=== PATIENT | male | born 1960 | race Caucasian/White ===

== ENCOUNTER 2020-10-13 06:38 | Inpatient (IN) ==
--- NOTE | 2020-10-02 10:48 | PAT Medication Instructions ---
Medication Instructions Date of Service October 02, 2020 Home Medications losartan-hydrochlorothiazide 1 tab PO QPM Take evening before surgery losartan-hydrochlorothiazide 1 tab PO QPM NOTHING TO EAT OR DRINK AFTER MIDNIGHT. Other Notes If you have any questions please call us at [phone] or [phone] or [phone] or [phone]
--- NOTE | 2020-10-02 11:43 | Anesthesiology Consultation ---
Date of Service October 02, 2020 Assessment & Plan (1) Encounter for pre-operative examination: COVID Status: As of 10/02 assessment, patient denies travel to endemic area, known exposure/sick contacts, or symptoms of COVID19. Patient instructed that they and their household members must follow strict social distancing guidelines, wear a mask in public and avoid travel/events/gatherings for 14 days prior to surgery. Preoperative COVID19 testing to be completed prior to surgery per surgeon's arrangements (10/06). Patient made aware to self-isolate as much as possible between COVID testing and surgery. Chart Review Chart Review: Acceptable Risk for Surgery (pending pcp clearance 10/10) and Patient seen in Pre Admission Testing Teaching & Discussion Instructed NPO after midnight before surgery, except medications with 15 cc of water. Medication instructions provided according to the PAT guidelines. History Surgery Operation Date: 10/13/20 08:05 Proposed Procedures p Right Total Hip Arthroplasty Uncemented - Reece Padgett, Height/Weight Height: 5 ft 10 in Weight: 87.5 kg Allergies Allergy/AdvReac Type Severity Reaction Status Date / Time No Known Allergies Allergy Verified 09/29/20 11:46 Medications Home Medications Medication Instructions Recorded Confirmed Last Taken losartan-hydrochlorothiazide 1 tab PO QPM 09/29/20 09/29/20 Unknown Past Medical History Medical History Hypertension Osteoarthritis Exercise / Class Metabolic Activity II 4-5 Yardwork/Stairs/Walk up hill Past Family History Family History Other No family history of adverse response to anesthesia Past Surgical History Surgical History History of colonoscopy History of meniscectomy of left knee Past Anesthesia History No Hx of Anesthesia Complications and No Family Hx of Anesthesia Complications History of PONV No Hx of PONV and No Hx of Motion Sickness Social History Smoking Status: Never smoker Do You Dip or Chew Tobacco: No Hx Alcohol Use: Yes alcohol intake frequency: holidays/special occasions only Hx Substance Use: No substance use type: does not use Review of Systems Pt denies any recent chest pain, shortness of breath, palpitations, cough, fever, URI, or uncontrolled acid reflux. Physical Exam Vital Signs BP: 157/90 (rpt 148/91 five mins later. Pt reports taking BP at home, results usually 120s/80s. Will see PCP prior to surgery.) P: 68bpm SPO2: 96% RA T: 98.2 F R: 16 ENMT Mouth: + dental restorations (few crowns on molars); no chipped teeth and no loose teeth Thyromental Distance: > or= 3.5 Finger Breadths Mallampati Class: I Neck normal visual inspection; neck extension not limited Respiratory normal respiratory effort, lungs clear to auscultation Cardiovascular RRR, no murmur, no edema Vessels: no carotid bruit Testing Laboratory Results 10/02/20 11:45 10/02/20 11:55 PT 10.2 Seconds (9.0-12.0) 10/02/20 11:45 INR 1.0 (0.9-1.1) 10/02/20 11:45 APTT 25.5 Seconds (21.0-31.0) 10/02/20 11:45 Hemoglobin A1c 4.9 % (4.5-5.6) 10/02/20 11:45 Urine Color Yellow 10/02/20 11:45 Urine Appearance Clear (Clear) 10/02/20 11:45 Urine pH 6.0 (4.5-7.5) 10/02/20 11:45 Ur Specific [place] 1.012 (1.000-1.030) 10/02/20 11:45 Urine Protein Negative (Negative) 10/02/20 11:45 Urine Glucose (UA) Negative (Negative) 10/02/20 11:45 Urine Ketones Negative (Negative) 10/02/20 11:45 Urine Nitrite Negative (Negative) 10/02/20 11:45 Ur Leukocyte Esterase 1+ (Negative) H 10/02/20 11:45 Urine WBC (Auto) 1-5 /hpf (0-5) 10/02/20 11:45 Urine RBC (Auto) 0-4 /hpf (0-4) 10/02/20 11:45 U Hyaline Cast (Auto) 0 /lpf (0-5) 10/02/20 11:45 U Epithel Cells (Auto) 0-5 /lpf (0-5) 10/02/20 11:45 Urine Bacteria (Auto) Negative (Negative) 03/08/21 11:45 Blood Type O Positive 10/02/20 11:45 Antibody Screen NEGATIVE 10/02/20 11:45 *Mildly increased Cr. Unknown if this is baseline. Will send labs to PCP for their reference at clearance appointment. Electrocardiogram Date: 10/02/20 Findings: + NSR @ (63bpm) Chest X-Ray Date: 10/02/20 Findings: + NAD
[2020-10-02 12:22] LABS: Basophils # (auto) 0.01 K/uL (0-0.2); Basophils % (auto) 0.2 %; Eosinophils # (auto) 0.03 K/uL (0-0.5); Eosinophils % (auto) 0.6 %; Hemoglobin 15.6 g/dL (14.0-18.0); Immature Granulocytes # (auto) 0.01 K/uL (0.00-0.02); Immature Granulocytes % (auto) 0.2 %; Lymphocytes # (auto) 1.25 K/uL (1.2-3.4); Lymphocytes % (auto) 23.5 %; Mean Corpuscular Hemoglobin 32.8 pg (25-34); Mean Corpuscular Hgb Conc 35.5 g/dL (32-36); Mean Corpuscular Volume 92.4 fL (80-100); Mean Platelet Volume 10.2 fL (7.4-10.4); Monocytes # (auto) 0.44 K/uL (0.11-0.59); Monocytes % (auto) 8.3 %; Neutrophils # (auto) 3.59 K/uL (1.4-6.5); Neutrophils % (auto) 67.2 %; Platelet Count 219 K/uL (130-400); RDW Coefficient of Variation 12.4 % (11.5-14.5); RDW Standard Deviation 42.3 fL (36.4-46.3); Red Blood Count 4.76 M/uL (4.7-6.1); White Blood Count 5.33 K/uL (4.8-10.8)
--- NOTE | 2020-10-02 12:23 | XRay Report ---
XR chest Pre-admission PA/Lat HISTORY: Preop. COMPARISON: None. FINDINGS: The lungs are clear. Cardiac silhouette is normal in size. No pleural effusions. No pneumot horax. IMPRESSION: No acute process. ACT 112: Negative or not required by law. Electronically signed by: Jorge L Shook M.D. 10/02/2020 12:21 PM
[2020-10-02 12:27] LABS: Appearance Urine Clear (Clear); Bacteria Urine Automated Negative (Negative); Bilirubin Urine Negative (Negative); Blood Urine Negative (Negative); Cast Urine Automated 0 /lpf (0-5); Color Urine Yellow; Epithelial Cell Urine Auto 0-5 /lpf (0-5); Glucose Urine UA Negative (Negative); Ketones Urine Negative (Negative); Leukocyte Esterase Urine 1+ (Negative); Nitrite Urine Negative (Negative); Protein Urine Negative (Negative); RBC Urine Automated 0-4 /hpf (0-4); Specific Gravity Urine 1.012 (1.000-1.030); Urobilinogen Urine Negative (Negative)
[2020-10-02 12:34] LABS: Partial Thromboplastin Time 25.5 Seconds (21.0-31.0); Prothrombin Time 10.2 Seconds (9.0-12.0)
[2020-10-02 12:36] LABS: Estimated Average Glucose 94 mg/dl; Hemoglobin A1C 4.9 % (4.5-5.6)
--- NOTE | 2020-10-02 13:24 | Electrocardiogram Report ---
Test Reason : Blood Pressure : / mmHG Vent. Rate : 063 BPM Atrial Rate : 063 BPM P-R Int : 156 ms QRS Dur : 086 ms QT Int : 402 ms P-R-T Axes : 046 067 025 degrees QTc Int : 411 ms Normal sinus rhythm Normal ECG No previous ECGs available Confirmed by Edward Charles ([id number]) on 10/02/2020 1:24:06 PM Referred By: Reece Padgett Confirmed By:Edward Charles
[2020-10-02 15:40] LABS: Calcium 9.4 mg/dl (8.5-10.1); Est GFR (African American) 56.4; Est GFR (Non-African American) 48.7; Potassium 4.2 mmol/L (3.5-5.1)
--- NOTE | 2020-10-12 16:51 | History & Physical Report ---
Date of Service October 12, 2020 Assessment & Plan (1) Degenerative joint disease of right hip: Schedule a Right Total Hip Arthroplasty for 10.13.20. All potential risks, benefits, complications, alternatives, and rehab have been discussed with the patient and he wishes to proceed. ASA 81 mg BID x 4 wks post op for DVT prophylaxis. History of Present Illness Chief Complaint: right hip pain Primary Care Provider: NO PCP This is a patient with chronic right hip and groin pain that has been treated conservatively for hip DJD. He has failed all conservative management. He is now being set up for surgical management. Allergies Allergy/AdvReac Type Severity Reaction Status Date / Time No Known Allergies Allergy Verified 09/29/20 11:46 Home Medications Medication Instructions Recorded Confirmed Type losartan-hydrochlorothiazide 1 tab PO QPM 09/29/20 09/29/20 History Past Med/Surg History Medical History Hypertension Osteoarthritis Surgical History History of colonoscopy History of meniscectomy of left knee Family History Other No family history of adverse response to anesthesia Social History Smoking Status: Never smoker Second Hand Exposure: No; Do You Dip or Chew Tobacco: No; Tobacco Cessation Education Requested by Patient: No Hx Alcohol Use: Yes Hx Substance Use: No Preferred Language: [place] Island[place] Communication Ability: Effective Jar Filler Required: No Beliefs That Will Affect Care: None Current Living Situation: Spouse Other Information That Helps Us Care for You: No Feels Safe at Home: Yes Safety Concerns: Feels Safe At This Time Assistive Devices: None Physical Exam Constitutional: well developed and well nourished; no acute distress ENMT: external ear and nose normal, oropharynx normal Neck: trachea midline, no thyromegaly Respiratory: normal respiratory effort, lungs clear to auscultation Cardiovascular: Rate/Rhythm: regular rate and regular rhythm Gastrointestinal (Abdomen): normal bowel sounds, soft, nontender, no hepatosplenomegaly Musculoskeletal: Hip: + limited ROM of hip (right internal/external rotation), + joint line tenderness (right groin), + SYDNEE test positive (right) and + FADIR test positive (right); hip normal to inspection, no skin erythema and no ecchymosis Skin: no rashes, warm and dry Neurologic: normal touch/pain/proprioception Psychiatric: A+Ox3, euthymic affect Speech: normal rate/rhythm/volume of speech Lymphatic: no cervical or axillary lymphadenopathy
[~2020-10-13 06:38] MED LIST: ACETAMINOPHEN 500 MG TAB PO SCH; CeleBREX 200 MG CAP PO SCH; FAMOTIDINE 20 MG TAB PO SCH; GABAPENTIN 600 MG DOSE PO SCH; LR 500ML BOLUS, THEN 15ML/HR IV SCH; METOCLOPRAMIDE HCL 10 MG TABLET PO SCH; ROPIVACAINE 0.5% HCL/PF 150 MG, BUPIVACAINE 0.75% MPF 20 ML, EPINEPHrine 30MG/30ML (OR ... INSTIL SCH; Scopolamine 1 MG TDSY TD SCH; ceFAZolin 2000MG 2,000 MG/15 ML SYR IV SCH; dexAMETHasone 4 MG TAB PO SCH
[2020-10-13] MEDS ORDERED: BUPIVACAINE 0.5 % 5 MG/1 ML PF 10ML VIAL ONE (07:26)
--- NOTE | 2020-10-13 07:58 | History & Physical Bridge Note ---
Date of Service October 13, 2020 History & Physical Bridge Note I have examined the patient, reviewed the History & Physical and in the interval since the performance of the History & Physical I have noted the following changes of clinical significance: no changes noted
[2020-10-13] MEDS ORDERED: TRANEXAMIC ACID 1,000 MG **IV Pre-op IV SCH (08:00)
[2020-10-13] MEDS ORDERED: MIDAZOLAM HCL 1 MG/ML 2ML VIAL ONE (08:50)
[2020-10-13] MEDS ORDERED: fentaNYL citrate 100 MCG/2 ML VIAL ONE ×2 (08:50→12:02)
[2020-10-13] MEDS ORDERED: ePHEDrine sulfate 50 MG/ML AMP IV PRN (09:10)
[2020-10-13] MEDS ORDERED: ATROPINE SULFATE 0.1 MG/ML 10ML SYR IV PRN (09:10)
[2020-10-13] MEDS ORDERED: fentaNYL citrate 100 MCG/2 ML VIAL IV PRN (09:10)
[2020-10-13] MEDS ORDERED: HYDROmorphone INJ 2 MG/ML SYR/VIAL IV PRN (09:10)
[2020-10-13] MEDS ORDERED: ONDANSETRON INJ 2 MG/ML 2 ML VIAL IV PRN ×2 (09:10→15:34)
[2020-10-13] MEDS ORDERED: BACITRACIN INJ 50,000 UNIT VIAL ONE (09:47)
[2020-10-13] MEDS ORDERED: ORTHO JOINT ANESTHETIC ONE (09:47)
[2020-10-13] MEDS ORDERED: PROPOFOL IV EMULSION 10 MG/ML 20 ML VIAL IV ONE ×2 (10:16→12:25)
[2020-10-13] MEDS ORDERED: LIDOCAINE HCL 2% 2 ML VIAL/AMP(20MG/ML) INFIL ONE (10:16)
[2020-10-13] MEDS ORDERED: ONDANSETRON INJ 2 MG/ML 2 ML VIAL ONE (10:16)
--- NOTE | 2020-10-13 13:11 | Post Operative Brief Note ---
Immediate Post Op Note v1 Date of Surgery October 13, 2020 Pre & Post Diagnosis Operation Date: 10/13/20 08:25 Pre-Op Diagnosis: Osteoarthritis Right Hip, degenerative arthritis, right hip pain Post-Op Diagnosis: Osteoarthritis Right Hip, degenerative arthritis, right hip pain I identified the patient and participated in the time-out.: Yes Procedure Operation Date: 10/13/20 08:25 Actual Procedures p Right Total Hip Arthroplasty with press-fit Victoriano Accolade 2 size #4 femoral component, Biolox delta ceramic 36 mm x +2.5 mm femoral head, Trident X3 10 degree polyethylene, Trident 2 Tritanium cluster acetabular shell 54 mm and two 6.5 mm hex screws.- Reece Padgett DO Surgeon Reece Padgett DO [employer] Nino Dee PA-C Estimated Blood Loss 100 Findings Consistent with Post-Op Diagnosis Specimens Bone and tissue right hip Drains Hemovac Drain (Hemovac x2) Anesthesia Type Spinal MAC Complications none Disposition Accompanied Patient To Recovery: No Disposition: Recovery Room
--- NOTE | 2020-10-13 13:49 | XRay Report ---
XR hip 1V RT w pelvis CLINICAL HISTORY: Postoperative evaluation. COMPARISON: None FINDINGS: Alignment of the total right hip arthroplasty is anatomic. There is no periprosthetic frac ture or unexpected radiopaque foreign body. Surgical drains are in place. There are 2 acetabular scre ws. Scrotal surgical clips are incidentally noted. IMPRESSION: Expected findings following total right hip arthroplasty. ACT 112: Negative or not required by law. Electronically signed by: Steve Poe M.D. 10/13/2020 1:48 PM
--- NOTE | 2020-10-13 14:32 | Operative Report (OR) ---
DATE OF OPERATION: 10/13/2020 PREOPERATIVE DIAGNOSES: 1. Right hip osteoarthritis. 2. Degenerative joint disease, right hip. 3. Right hip pain. POSTOPERATIVE DIAGNOSES: 1. Right hip osteoarthritis. 2. Degenerative joint disease, right hip. 3. Right hip pain. PROCEDURE: Right total hip arthroplasty using a Victoriano Accolade II Size 4 femur, Biolox delta ceramic femoral head, 36 mm x +2.5 mm neck length, Trident X3 10-degree polyethylene liner, Trident II Tritanium cluster acetabular shell 54 mm, low-profile hex screws 6.5 x2. SURGEON: Reece Padgett DO. FIRE LOOKOUT: Nino Dee PA-C who was present for patient positioning, sterile prep and drape, management of retractors and instruments. He was present through the critical portions of the case including wound closure, application of sterile dressing and transport of the patient to recovery. ANESTHESIA: Spinal regional with local. SPECIMENS: Bone and tissue, right hip. DRAINS: Hemovac x2. COMPLICATIONS: None. BLOOD LOSS: 100 mL. PERTINENT HISTORY: This is a 60-year-old gentleman who has had chronic progressive ongoing and worsening right hip pain for the last 9-12 months. He attempted and failed conservative management including physician directed home exercises, physical therapy, antiinflammatories, intraarticular steroid injections, modification of activities, use of an assistive device and observation. Radiographs demonstrate severe degenerative arthritis with loss of joint space, marginal osteophytes, subchondral sclerosis and subchondral cyst formation of the right hip. The patient was scheduled for surgery as indicated. PROCEDURE: The patient was taken to the Operating Suite and placed supine on the Operating Room table after identification of the consent and identification of the proper operative site the patient was sedated. The patient had previously received a spinal anesthetic. The patient was then placed in the left lateral decubitus position with the affected side up and Stulberg positioning device then used to maintain lateral position of the patient. All bony prominences were properly padded and protected. Axillary roll was placed as standard and the leg lengths were determined to be essentially equal and then the right hip was then sterilely prepped and draped in the usual fashion. 10-blade scalpel incision was made laterally over the greater trochanter. The incision was deepened through the subcutaneous tissue and meticulous hemostasis with electrocautery. Further deepening of the wound through the layer of the fascia was performed with electrocautery and iliotibial band was then incised with electrocautery. Next, Charnley retractor was placed bother anteriorly and posteriorly at the level of the gluteus tendon. Next, electrocautery was used to make an incision in the vastus lateralis and then sweep was made toward the anterior aspect of the patient along the course of the femoral neck and head. Abductor split was then completed. The gluteus minimus and capsule were then incised and then soft tissue was dissected anteriorly. Next as the soft tissue was dissected anteriorly the lesser trochanter was clearly identified and hip was dislocated with relative ease. Hypertrophic osteophytes were noted circumferentially. The hip joint was noted to be noticeably tight. Next the sagittal saw was used to resect the proximal portion of the femoral neck and head approximately one fingerbreadth proximal to the lesser trochanter. Head was then removed and next the labrum was excised from the acetabulum with a 20 blade scalpel and long forceps. Next the wound was irrigated with pulsatile lavage and the pulvinar was then excised from the acetabulum. Appropriate retractors were placed anteriorly superiorly and posteriorly. Next initial acetabular reamer was placed 44 mm medialized to the medial wall and then sequential reaming was performed to size 54 mm. Trial cage was then placed and noted to be stable with excellent fit. Next the incision was irrigated with pulsatile lavage with bacitracin additive and Trident II Tritanium cluster acetabular shell 54 mm was impacted and then low-profile hex screws 6.5 x2 were used to stabilize the acetabular shell. Trident X3 10-degree polyethylene liner 36 mm was impacted into the shell. Lap sponge was placed over to protect it. Next, attention was turned toward the proximal femur. Box osteotome was used to resect proximal portion of bone followed by first pass small reamer. Next, sequential broaching was performed up to size 4 and the 4 trial was placed followed by +2.5 36 mm trial head. Next, it was reduced and had excellent fit and feel with minimal shuck and excellent stability in all planes and range of motion. Leg lengths were restored and next all trial implants were removed. The wound was copiously irrigated with pulsatile lavage and Victoriano Accolade II Size 4 femur x 132 degree final stem was impacted. Next, Biolox delta ceramic femoral head, 36 mm x +2.5 mm neck length. The construct was reduced. Range of motion was performed and noted to be completely stable with excellent range of motion, improved to greater degree than prior to surgery. Two 10 [place] single Hemovac drains were placed exiting anterolaterally. Wound was irrigated with pulsatile lavage. Next a #5 FiberWire suture was used to close the capsule and gluteus minimum via two small bone tunnels made with 2.4 mm drill bit in the greater trochanter. After FiberWire closure was completed and noted to be stable then 10 [place] drains were placed followed by closure of the vastus lateralis and the gluteus medius. This was closed with #1 Vicryl sutures. Next, the iliotibial band was closed using interrupted [id number] #1 Vicryl sutures. Next, final irrigation was performed with pulsatile lavage and dermis was closed using buried interrupted 2-0 Vicryl suture. The skin was closed with Zipline skin closure device. Sterile compressive dressing was applied. The patient was then placed supine and taken to recovery in stable condition. I attest to the content of the Intraoperative Record and any orders documented therein. Any exceptions are noted below. KEVIND
--- NOTE | 2020-10-13 14:55 | Anesthesiology Progress Note ---
Date of Service October 13, 2020 Anesthesia Post Procedure Vital Signs Vital Signs: Temp Pulse Pulse Resp BP Pulse Ox 10/13/20 14:50 68 20 101/63 95 10/13/20 14:40 65 18 103/67 95 10/13/20 14:30 61 20 104/61 95 10/13/20 14:20 75 20 96/60 L 95 10/13/20 14:10 70 17 96/64 L 95 10/13/20 14:00 72 20 101/61 95 10/13/20 13:50 67 16 104/61 96 10/13/20 13:40 69 14 95/61 L 96 10/13/20 13:30 66 12 93/62 L 96 10/13/20 13:20 64 12 91/63 L 96 10/13/20 13:13 36.7 C 71 17 98/58 L 94 10/13/20 07:05 36.7 C 73 20 155/95 H 95 Transfer of Care Handoff Completed per policy Notes Mental Status: alert / awake / arousable and participated in evaluation Patient Amnestic to Procedure: Yes Nausea / Vomiting: adequately controlled Pain: adequately controlled Airway Patency, RR, SpO2: stable & adequate BP & HR: stable & adequate Hydration State: stable & adequate Neuraxial Anesthesia: was administered and sensory block is resolving Anesthetic Complications: no major complications apparent
[2020-10-13] MEDS ORDERED: oxyCODONE HCL IR 5 MG TAB (IMMEDIATE RELEASE) PO PRN (15:34)
[2020-10-13] MEDS ORDERED: METOCLOPRAMIDE HCL INJ 5 MG/ML 2 ML VIAL IV PRN (15:34)
[2020-10-13] MEDS ORDERED: NALOXONE HCL 0.4 MG/1 ML VIAL/CARP IV PRN (15:34)
[2020-10-13] MEDS ORDERED: ALUMINUM/MAGNESIUM SUSP 30 ML UDC PO PRN (15:34)
[2020-10-13] MEDS ORDERED: TAMSULOSIN HCL 0.4 MG CAP PO PRN (15:34)
[2020-10-13] MEDS ORDERED: KETOROLAC TROMETHAMINE 15 MG/ML VIAL IV PRN (15:34)
[2020-10-13] MEDS ORDERED: diphenhydrAMINE Capsule 25 MG CAP PO PRN (15:34)
[2020-10-13] MEDS ORDERED: MAGNESIUM HYDROXIDE SUSP 30 ML UDC PO PRN (15:34)
[2020-10-13] MEDS ORDERED: bisacodyL 10 MG SUPP PR PRN (15:34)
[2020-10-13] MEDS ORDERED: HYDROmorphone INJ 0.5 MG/0.5 ML SYR IV PRN (15:34)
[2020-10-13] MEDS: Scopolamine CHECK PATCH PLACEMENT SCH ×2 (15:37→23:08)
--- NOTE | 2020-10-13 17:45 | Radiation OncologyConsultation ---
Date of Consultation October 13, 2020 History of Present Illness Attending Physician: Reece Padgett DO History of Present Illness Mr. Joseph is a 60-year-old male who has a history of chronic right hip and groin pain. This has been treated conservatively for hip degenerative disease without persistent benefit. The patient is therefore agreed to proceed with surgical management of a total hip prosthesis. Allergies Allergy/AdvReac Type Severity Reaction Status Date / Time No Known Allergies Allergy Verified 10/13/20 07:03 Home Medications Medication Instructions Recorded Confirmed Type losartan-hydrochlorothiazide 1 tab PO QPM 09/29/20 10/13/20 History Patient History Medical History Hypertension Osteoarthritis Surgical History History of colonoscopy History of meniscectomy of left knee Family History Other No family history of adverse response to anesthesia Social History Smoking Status: Never smoker Second Hand Exposure: No; Do You Dip or Chew Tobacco: No; Tobacco Cessation Education Requested by Patient: No Hx Alcohol Use: Yes Hx Substance Use: No Preferred Language: Danish Communication Ability: Effective Ladies Underwear Operator Required: No Beliefs That Will Affect Care: None Current Living Situation: Spouse Other Information That Helps Us Care for You: No Feels Safe at Home: Yes Safety Concerns: Feels Safe At This Time Assistive Devices: None Physical Exam Physical Exam: Constitutional: Patient is well-developed well-nourished and in no acute distress. ENMT: Oral cavity is without mucosal abnormalities. Neck: No palpable adenopathy. No palpable thyroid abnormalities and no carotid bruits. Lungs: Adequate air movement clear to auscultation and percussion. Cardiovascular: Regular rhythm without murmurs. Abdomen: Soft nontender no masses or organomegaly. Musculoskeletal: Patient has pressure bandages on the right hip following total hip arthroplasty. Neurologic: No neurologic abnormalities appreciated. Lymphatic: No axillary, cervical, supraclavicular adenopathy appreciated. Psychiatric: Patient is alert and oriented x3. He has an euthymic affect.
--- NOTE | 2020-10-13 17:57 | Radiation OncologyConsultation ---
Date of Consultation October 13, 2020 Assessment & Plan (1) Heterotopic calcification, postoperative: Mr. Joseph's preoperative radiograph demonstrated severe degenerative arthritis with significant loss of joint space, marginal osteophytes, subchondral sclerosis and subchondral cyst formation of the right hip. The patient was felt to be a candidate for total hip arthroplasty. Dr. Padgett performed this procedure today. Following the procedure based on the preoperative and operative findings felt the patient was at increased risk for development of heterotopic bone formation. For this reason he asked us to see the patient in referral for consideration of a single fraction of radiation to prevent the formation of heterotopic bone. I met with the patient and his and reviewed with them the risk factors for developing heterotopic bone and the possible consequences if it is development is not prevented. I reviewed with him the use of radiation with a single treatment to prevent heterotopic bone formation. I reviewed with him in great detail the potential risks and side effects of this procedure as well as its anticipated benefit. A consent form was carefully reviewed with the patient. The risks were reviewed and initialed and the consent form was reviewed signed and witnessed by the patient's . I reviewed with him the importance of the timing of the prophylactic radiation treatment. This treatment should be delivered within 72 hours of the procedure. For that reason we arranged for the patient to come in for CT simulation Friday with planned treatment to follow shortly after that. I encouraged the patient to discuss this procedure with orthopedics if he has any questions. The patient indicated he will likely be discharged tomorrow and therefore an appointment card was given to him for Friday as an outpatient at 10:30 AM. The patient and his had multiple questions which were answered to their full satisfaction. Thank you for allowing us to participate in the care of this patient. This chart was completed in part utilizing [employer] Speech Voice Recognition software. Grammatical errors, random word insertions, pronoun errors and incomplete sentences are occasional consequence of this system due to software limitations, ambient noise and hardware issues. Any formal questions or concerns about the content, text or information contained within the body of this dictation should be directly addressed to the provider for clarification. Zhou Benoit MD Department of Radiation Oncology [facility] and [facility] History of Present Illness Attending Physician: Reece Padgett, Allergies Allergy/AdvReac Type Severity Reaction Status Date / Time No Known Allergies Allergy Verified 10/13/20 07:03 Home Medications Medication Instructions Recorded Confirmed Type losartan-hydrochlorothiazide 1 tab PO QPM 09/29/20 10/13/20 History Patient History Medical History Hypertension Osteoarthritis Surgical History History of colonoscopy History of meniscectomy of left knee Family History Other No family history of adverse response to anesthesia Social History Smoking Status: Never smoker Second Hand Exposure: No; Do You Dip or Chew Tobacco: No; Tobacco Cessation Education Requested by Patient: No Hx Alcohol Use: Yes Hx Substance Use: No Preferred Language: Upper Sorbian Communication Ability: Effective Research Geologist Required: No Beliefs That Will Affect Care: None Current Living Situation: Spouse Other Information That Helps Us Care for You: No Feels Safe at Home: Yes Safety Concerns: Feels Safe At This Time Assistive Devices: None Physical Exam Physical Exam: Constitutional: Patient is well-developed well-nourished and in no acute distress. ENMT: Oral cavity is without mucosal abnormalities. Neck: No palpable adenopathy. No palpable thyroid abnormalities and no carotid bruits. Lungs: Adequate air movement clear to auscultation and percussion. Cardiovascular: Regular rhythm without murmurs. Abdomen: Soft nontender no masses or organomegaly. Musculoskeletal: Patient has pressure bandages on the right hip following total hip arthroplasty. Neurologic: No neurologic abnormalities appreciated. Lymphatic: No axillary, cervical, supraclavicular adenopathy appreciated. Psychiatric: Patient is alert and oriented x3. He has an euthymic affect. Results (Rad Onc) Laboratory Results: were reviewed and no pertinent findings Pathology Results: were reviewed and no pertinent findings Imaging Studies: were reviewed and pertinent findings noted in HPI Time Spent Attending This documentation has been prepared in full by Dr. Benoit. I have personally reviewed the services described and have reviewed the documentation to ensure its accuracy. I spent 20 minutes with direct face to face interaction with the patient which included obtaining clinical information, recommending a plan of action, examining the patient and answering questions. I spent 10 minutes reviewing his scans and chart and preparation of this document. IKP
[2020-10-13] MEDS: ceFAZolin 2000MG 2,000 MG/15 ML SYR IV SCH (17:59)
[2020-10-13] MEDS: ACETAMINOPHEN 500 MG TAB PO SCH ×2 (18:01→23:07)
[2020-10-13] MEDS: SODIUM CHLORIDE 0.9% 1000ML 1,000 ML IV SCH (18:03)
[2020-10-13] MEDS ORDERED: TRANEXAMIC ACID / 0.7% NACL 1,000 MG/100 ML BAG IV SCH (19:21)
[2020-10-13] MEDS ORDERED: hydroCHLOROthiazide 25 MG TAB PO SCH (21:00)
[2020-10-13] MEDS ORDERED: SENNA 8.6 MG TAB PO SCH (21:00)
[2020-10-13] MEDS ORDERED: LOSARTAN POTASSIUM 50 MG TAB PO SCH (21:00)
[2020-10-13] MEDS: CeleBREX 200 MG CAP PO SCH (21:08)
[2020-10-13] MEDS: DOCUSATE SODIUM 100 MG CAP PO SCH (21:09)
[2020-10-13] MEDS: ASPIRIN 81 MG ECTAB PO SCH (21:10)
[2020-10-14] MEDS: SODIUM CHLORIDE 0.9% 1000ML 1,000 ML IV SCH (01:48)
[2020-10-14] MEDS: ceFAZolin 2000MG 2,000 MG/15 ML SYR IV SCH (01:49)
[2020-10-14] MEDS: ACETAMINOPHEN 500 MG TAB PO SCH (05:55)
[2020-10-14 05:57] LABS: Hematocrit (blood only) 34.8 % (42-52); Hemoglobin 12.1 g/dL (14.0-18.0); Immature Granulocytes # (auto) 0.03 K/uL (0.00-0.02); Immature Granulocytes % (auto) 0.2 %; Lymphocytes # (auto) 0.97 K/uL (1.2-3.4); Lymphocytes % (auto) 5.8 %; Mean Corpuscular Hemoglobin 32.4 pg (25-34); Mean Corpuscular Hgb Conc 34.8 g/dL (32-36); Mean Corpuscular Volume 93.3 fL (80-100); Mean Platelet Volume 10.3 fL (7.4-10.4); Monocytes # (auto) 0.91 K/uL (0.11-0.59); Monocytes % (auto) 5.4 %; Neutrophils # (auto) 14.86 K/uL (1.4-6.5); Neutrophils % (auto) 88.6 %; Platelet Count 194 K/uL (130-400); RDW Coefficient of Variation 12.2 % (11.5-14.5); RDW Standard Deviation 41.5 fL (36.4-46.3); Red Blood Count 3.73 M/uL (4.7-6.1); White Blood Count 16.77 K/uL (4.8-10.8)
[2020-10-14 06:28] LABS: BUN Creatinine Ratio 11.1 (10-20); Calcium 8.1 mg/dl (8.5-10.1); Creatinine Clr Calc Pharmacy 50.9 ml/min; Est GFR (African American) 49.7; Est GFR (Non-African American) 42.9; Potassium 4.1 mmol/L (3.5-5.1)
[2020-10-14] MEDS: ASPIRIN 81 MG ECTAB PO SCH (08:44)
[2020-10-14] MEDS: CeleBREX 200 MG CAP PO SCH (08:45)
[2020-10-14] MEDS: DOCUSATE SODIUM 100 MG CAP PO SCH (08:45)
[2020-10-14] MEDS: Scopolamine CHECK PATCH PLACEMENT SCH (08:45)
[2020-10-14] MEDS ORDERED: MULTIVITAMIN TAB PO SCH (09:00)
--- NOTE | 2020-10-14 10:11 | Orthopedic Progress Note ---
Date of Service October 14, 2020 Assessment & Plan (1) Status post right hip replacement: Admission and Anticipated Discharge Date Admission Date: 60 yo male stable POD #1 s/p right JEFFERSON 1. Med management 2. DVT prophylaxis- ASA, SCDs 3. PT/OT 4. D/C planning- home w/ HH Subjective Pt resting in bed, pain controlled, denies complaints Physical Exam Physical Exam: Toes mobile, N/V/I, thigh soft, dressing and drain in place Results & Data ([facility]) Vital Signs (Past 12 Hours) Vital Signs Temp Pulse Resp BP Pulse Ox 10/14/20 07:00 36.3 C L 58 L 18 127/72 92 10/14/20 03:52 36.5 C 72 15 103/64 96 10/13/20 23:06 36.6 C 61 16 111/71 91 Laboratory Results 10/14/20 10/14/20 Range/Units 05:31 05:31 WBC 16.77 H (4.8-10.8) K/uL RBC 3.73 L (4.7-6.1) M/uL Hgb 12.1 L (14.0-18.0) g/dL Hct 34.8 L (42-52) % MCV 93.3 (80-100) fL MCH 32.4 (25-34) pg MCHC 34.8 (32-36) g/dL RDW Std Deviation 41.5 (36.4-46.3) fL RDW Coeff of Carmelo 12.2 (11.5-14.5) % Plt Count 194 (130-400) K/uL MPV 10.3 (7.4-10.4) fL Immature Gran % (Auto) 0.2 % Neut % (Auto) 88.6 % Lymph % (Auto) 5.8 % Carver % (Auto) 5.4 % Eos % (Auto) 0.0 % Baso % (Auto) 0.0 % Neut # (Auto) 14.86 H (1.4-6.5) K/uL Lymph # (Auto) 0.97 L (1.2-3.4) K/uL Carver # (Auto) 0.91 H (0.11-0.59) K/uL Eos # (Auto) 0.00 (0-0.5) K/uL Baso # (Auto) 0.00 (0-0.2) K/uL Immature Gran # (Auto) 0.03 H (0.00-0.02) K/uL Sodium 140 (136-145) mmol/L Potassium 4.1 (3.5-5.1) mmol/L Chloride 110 H (98-107) mmol/L Carbon Dioxide 25 (21-32) mmol/L Anion Gap 5.0 (3-11) BUN 19 H (7-18) mg/dl Creatinine 1.70 H (0.6-1.4) mg/dl Est Cr Clr Drug Dosing 50.9 ml/min Est GFR ( Amer) 49.7 Est GFR (Non-Af Amer) 42.9 BUN/Creatinine Ratio 11.1 (10-20) Glucose 129 H (70-99) mg/dl Calcium 8.1 L (8.5-10.1) mg/dl
--- NOTE | 2020-10-18 08:44 | Discharge Summary ---
Date of Service October 18, 2020 Admission HPI Per Admitting Provider This is a patient with chronic right hip and groin pain that has been treated conservatively for hip DJD. He has failed all conservative management. He is now being set up for surgical management. Principal Diagnosis right hip DJD Discharge Exam Constitutional well developed and well nourished; no acute distress ENMT external ear and nose normal, oropharynx normal Neck trachea midline, no thyromegaly Respiratory normal respiratory effort, lungs clear to auscultation Cardiovascular Rate/Rhythm: regular rate and regular rhythm Gastrointestinal (Abdomen) normal bowel sounds, soft, nontender, no hepatosplenomegaly Musculoskeletal Hip: + surgical incision (Right hip: Incision well approximated. Dressing C/D/I.); no skin erythema, no ecchymosis and no surgical drain present Skin no rashes, warm and dry Neurologic normal touch/pain/proprioception Psychiatric A+Ox3, euthymic affect Speech: normal rate/rhythm/volume of speech Lymphatic no cervical or axillary lymphadenopathy Discharge Data Allergies Allergy/AdvReac Type Severity Reaction Status Date / Time No Known Allergies Allergy Verified 10/16/20 14:49 Consultations 10/13/20 15:34 Consult Radiation Oncology Routine Procedures Performed Operation Date: 10/13/20 08:25 Actual Procedures p Right Total Hip Arthroplasty - Reece Padgett DO Hospital Course (1) Status post right hip replacement: Patient was admitted and underwent the noted procedure. On POD #1, his pain was controlled and he participated in PT. He was ambulating well. His d/c plan was to go home with home health and this was set up prior to discharge. He was also seen by radiology for treatment to prevent heterotopic ossification at the hip replacement site. He was then discharged home later on POD #1. Total Time Total Time Spent Total Time Spent (In Minutes): 30 Total Time Includes: Examination of the Patient, Discharge Planning and Medication Reconciliation Discharge Plan Discharge Items Patient Disposition: Home - Home Health Services Reason For Visit: Osteoarthritis Right Hip Discharge Diagnosis: Right hip arthritis Activity: Per Instructions section Non-emergency contact: Surgeon Call non-emergency contact if: your pain is not controlled, your temperature is above 101.5, your wound has increased redness and your wound has increased drainage Follow-up/Referrals: PCP,NO [Primary Care Provider] - Diet: Regular Addtl Attending Provider Instructions: ACTIVITY RECOMMENDATIONS: SELF CARE INSTRUCTIONS AFTER TOTAL HIP REPLACEMENT Until the incision and soft tissues around your hip have healed, there is a possibility that the hip prosthesis could dislocate. A. Observe the following precautions to prevent dislocation: 1. Don't bend your hip greater than 90 degrees. 2. Avoid crossing your legs or ankles while standing or lying. 3. Sit with your feet placed 6 inches apart. 4. When sitting, keep your knees below your hips. Sit on a firm surface, avoid deep, soft chairs and couches. Use an elevated toilet seat in the bathroom. 5. Don't bend over at the waist. Use a long handled shoehorn and a sock aid to help you put on your shoes and socks. A assembler installer structures can help you cook pickled meat objects that are too high or too low to reach. 6. Keep car riding to a minimum for at least one month after surgery. B. Your balance may be shaky for a while. Use crutches or a walker until directed by your doctor. C. Use hand rails when walking on stairs. D. Wear low heeled shoes with non-slip soles. E. Be sure that your floors are free of things that could trip you - throw rugs, electrical cords, small objects. Avoid wet and waxed floors, especially with crutches and canes. F. Try to walk several times a day with rest periods between. G. Continue with all the exercises taught to you in the hospital. Again, make walking a part of your daily routine. SPECIAL CARE INSTRUCTIONS: VERY IMPORTANT TO READ AND REVIEW A. You may still be at risk for phlebitis and blood clots. 1. Wear surgical stockings (ARVIND hose) for 2 weeks after surgery to improve circulation and reduce swelling. 2. Take Aspirin 81mg twice daily for 4 weeks or as directed by your doctor. This is your blood thinner. 3. High risk patients may be prescribed a stronger blood thinner if necessary. 4. If you are on Coumadin normally, your family doctor/hardboard grinder should monitor your blood work. Expect a phone call the day of or the day after bloodwork is drawn to adjust your dosage. B. You must take antibiotics before having dental work, bladder, bowel and other surgery. Your doctor will provide you with a permanent card to carry describing precautions. C. [facility] if you have a fever, redness or swelling around the incision, cloudy drainage from incision, or sudden increase in pain in your hip, not relieved by your regular pain medication. D. Please call the office at if you have any concerns or questions about your operation or recovery. * YOU MAY SHOWER, NO TUB BATHS UNTIL CLEARED BY YOUR DOCTOR. * WEAR ARVIND HOSE 20 HOURS PER DAY FOR 2 WEEKS. * YOU SHOULD USE A WALKER OR CRUTCHES FOR 2-4 WEEKS. THIS WILL HELP PREVENT STRAIN ON YOUR HIP MUSCLE AND ALLOW IT TO HEAL PROPERLY. YOU MAY WEAN TO A CANE TOLERATED. * MOST PATIENTS WILL HAVE HOME NURSING FOR THERAPY. IF YOU DECIDE TO DO OUTPATIENT PHYSICAL THERAPY, PLEASE SCHEDULE THIS 3 TIMES PER WEEK. * YOU MAY HAVE A LARGE, BAND-LUIS LIKE DRESSING (SILVERON). THIS WILL REMAIN ON YOUR INCISION FOR 7 DAYS, THEN CAN BE REMOVED. IF INCISION IS LEAKING THROUGH DRESSING, PLEASE CALL THE OFFICE . FOLLOW UP VISIT: If appointment is not already scheduled: Please call [facility] to make a follow-up appointment for 2 weeks after your surgery at . Pending Studies at Discharge: No Stand-Alone Forms: My [facility] Car reviews, Opioid Pain Management, Smoking Cessation Medications and DC Order Prescriptions: New acetaminophen 500 mg Tablet 1,000 mg PO Q8 Qty: 0 RF: 0 aspirin 81 mg Tablet,Delayed Release (Dr/Ec) 81 mg PO BID 30 Days Qty: 60 RF: 0 oxycodone 5 mg tablet 5 - 10 mg PO Q6H PRN (Reason: pain) Qty: 30 RF: 0 Continued losartan-hydrochlorothiazide 100-12.5 mg Tablet 1 tab PO QPM RF: 0 Discharge Orders: Discharge Order (Routine); Ordered 10/14/20 Ordered By: Lit Campbell/Other Patient Handouts: DVT Post Op Prevention Admission Data Admit Date/Time: 10/13/20 13:32 Attending Provider: Reece Padgett Admit Provider: Reece Padgett Primary Care Provider: PCP,NO Other Providers: Jeremy Benoit Other Interventions: Discharge Summary Assessment (RN) Last Done: 10/14/20 11:51
== END 2020-10-14 12:30 | disposition home health service (06) | DRG 470 ==
LOC: ASU 06:38 → 3E 06:38 → OBSVTOIN 13:32